=== PATIENT | female | born 1950 | race Caucasian/White ===

== ENCOUNTER → 2017-10-27 | Outpatient (CLI) | payer MEDICARE, OTHER ==
[~2017-10-27] MED LIST: CONEST.625 PO; Carvedilol6.25 MG PO; LEVSOD100 PO; MONT10T PO; ZYRTEC10 MG PO
[2017-10-27 11:18] LABS: Albumin, Blood 4.3 g/dL (3.4-5.0); Anion Gap 8 mmol/L (6-16); Blood Urea Nitrogen 8 mg/dL (8-24); Bun/Creatinine Ratio 9.8 (12.0-20.0); CO2, Blood 27 mmol/L (21-32); Chloride, Blood 101 mmol/L (98-108); Creatinine, Blood 0.81 mg/dL (0.40-1.00); Glomerular Filtration Rate >60 (60-); Glucose, Blood 107 mg/dL (70-99); Magnesium, Blood 2.1 mg/dL (1.6-2.4); Phosphorus, Blood 3.7 mg/dL (2.5-4.9); Potassium, Blood 4.2 mmol/L (3.5-5.5); Sodium, Blood 136 mmol/L (136-145)
[2017-10-27 17:33] LABS: Protein, Urine Random 115.1 mg/dL (0.0-11.9)
== END ==
LOC: OLS 09:51
PROVIDERS: Internal Medicine
DX: E55.9 Vitamin D deficiency, unspecified (principal); I10 Essential (primary) hypertension
CPT/HCPCS: 36415; 80069; 82306; 82570; 83735; 84156

== ENCOUNTER → 2018-03-08 | Outpatient (CLI) | payer MEDICARE, OTHER | END | disposition home or self-care (01) | LOC: LAB 09:32 → LAB SHORT 09:32 | DX: A49.9 Bacterial infection, unspecified (principal) | CPT/HCPCS: 87070 ==

== ENCOUNTER 2024-03-11 19:10 | Observation (INO) | payer MEDICARE, OTHER ==
[~2024-03-11] VITALS: Ht 165.1 cm; Wt 70.1 kg
[~2024-03-11 19:10] MED LIST changes: -LEVSOD100 PO; +LEVSOD75 PO; +Prednisone20 MG PO
[2024-03-11 19:30] LABS: BASOPHILS ABSOLUTE AUTO 0.07 K/mm3 (0.00-0.23); BASOPHILS PERCENT AUTO 1 % (0-2); EOSINOPHILS PERCENT AUTO 0 % (0-6); Hematocrit 42.3 % (33.0-51.0); Hemoglobin 14.1 g/dL (11.5-16.0); IMMATURE GRAN ABSOLUTE AUTO 0.07 K/mm3 (0.00-0.10); IMMATURE GRAN PERCENT AUTO 1 % (0-1); LYMPHOCYTES ABSOLUTE AUTO 1.71 K/mm3 (0.84-5.20); LYMPHOCYTES PERCENT AUTO 23 % (21-46); MONOCYTES ABSOLUTE AUTO 0.53 K/mm3 (0.16-1.47); MONOCYTES PERCENT AUTO 7 % (4-13); Mean Corpuscular HGB 31.3 pg (26.0-34.0); Mean Corpuscular HGB Conc 33.3 g/dL (31.5-36.5); Mean Corpuscular Volume 94 fL (80-100); Mean Platelet Volume 10.2 fL (9.1-12.4); NEUTROPHILS ABSOLUTE AUTO 5.09 K/mm3 (1.96-9.15); NEUTROPHILS PERCENT AUTO 68 % (41-73); Platelet Count 255 K/mm3 (150-400); RDW Coefficient Variation 13.3 % (11.7-14.2); White Blood Cell Count 7.47 K/mm3 (4.00-11.30)
[2024-03-11] MEDS ORDERED: GABA100 PO (19:34)
[2024-03-11 20:00] LABS: Albumin, Blood 3.9 g/dL (3.4-5.0); Albumin/Globulin Ratio 1.3 (0.8-1.8); Bilirubin, Total 0.5 mg/dL (0.1-1.0); Bun/Creatinine Ratio 10.7 (12.0-20.0); Creatinine, Blood 0.93 mg/dL (0.40-1.00); Globulin, Blood 2.9 g/dL (2.2-4.0); Potassium, Blood 4.8 mmol/L (3.5-5.5); Total Protein, Blood 6.8 g/dL (6.4-8.2)
[2024-03-11] MEDS ORDERED: Aspirin 81 MG Chew PO ONE (20:35)
[2024-03-11] MEDS ORDERED: Nitroglycerin 0.4 MG SUBL SL PRN ×3 (20:40→22:25)
[2024-03-11] MEDS ORDERED: LORazepam 2 MG/ML 1ML Injection IV ONE (20:50)
[2024-03-11] MEDS ORDERED: NS 1,000 ML IV ONE (20:59)
[2024-03-11] MEDS ORDERED: NS 1,000 ML IV SCH ×2 (21:00→22:20)
[2024-03-11] MEDS ORDERED: Ondansetron HCl 2 MG / ML 2ML Vial IV PRN (22:20)
[2024-03-11] MEDS ORDERED: FentaNYL Citrate 50 MCG/ML 2 ML Injection IV PRN (22:25)
[2024-03-11] MEDS ORDERED: Heparin Sodium 5000 Units/ML 1ML MDV IV ONE (22:55)
[2024-03-11] MEDS ORDERED: Heparin Sodium,Porcine/0.5 NS 500 ML IV SCH (22:55)
[2024-03-11] MEDS ORDERED: Atorvastatin 40 MG Tab PO SCH (23:00)
[2024-03-11] MEDS ORDERED: Clopidogrel Bisulfate 300 MG Cap PO ONE (23:00)
[2024-03-11 23:11] LABS: Anti-Xa UFH, PHA Monitoring <0.10 IU/mL; International Normalized Ratio 0.97; Prothrombin Time Results 10.4 Sec (9.7-11.5)
[2024-03-11] MEDS ORDERED: AmLODIPine Besylate 5 MG Tab PO ONE (23:25)
[2024-03-12] VITALS (13 sets, daily range): BP systolic 132–162; BP diastolic 70–94
[2024-03-12] MEDS ORDERED: EUTHYROX50 MCG PO (00:26)
[2024-03-12] MEDS ORDERED: LOSA25 PO (00:28)
[2024-03-12] MEDS ORDERED: AMLO5 PO (00:28)
--- NOTE | 2024-03-12 02:00 | NUR ---
ARRIVAL TO PCU: PT ARRIVED TO PCU-11 VIA GURNEY AT 0010. REPORT TAKEN FROM MADELINE RN, THIS RN ASSUMED CARE. PT ABLE TO STAND AND TRANSFER TO BED W/ SBA FOR LINE MANAGEMENT. A/OX4, ABLE TO COMMUNICATE NEEDS. VSS ON ARRIVAL. HR 60'S, SINUS ON TELE. SBP 150'S, PT DENIES CHEST PAIN/PRESSURE. REPORTS FEELINGS OF "ACID REFLUX" BUT REPORTS THAT INITIAL CHEST PAIN HAS RESOLVED. SPO2 >95% ON RA, RESPIRATIONS EVEN & UNLABORED. AFEBRILE. HEPARIN GTT STARTED IN ED, INFUSING AT 15 U/KG/HR PER EMAR. NS INITIATED AT 75 ML/HR PER ORDERS. SKIN INTACT. ABLE TO AMBULATE TO BATHROOM TO VOID W/ SBA. PT ORIENTED TO ROOM/UNIT/CALL LIGHT. FIRE SAFETY/IGNITION RISK ASSESSED; PT IS A NON-SMOKER & DOES NOT HAVE ANY IGNITION SOURCES PRESENT ON ADMISSION. NO OTHER NEEDS AT THIS TIME. PT IS RESTING IN BED WITH CALL LIGHT IN REACH.
--- NOTE | 2024-03-12 05:35 | NUR ---
END OF SHIFT NOTE: NO ACUTE EVENTS FOLLOWING ARRIVAL TO PCU. VSS. PT REPORTS "HEARTBURN PAIN" AT -11/13. DENIES CHEST PAIN SIMILAR TO THE PAIN THAT WAS EXPERIENCED AT HOME/IN ED. HEPARIN GTT INFUSING PER EMAR. REPOSITIONING SELF INDEPENDENTLY T/O NOC. PT HAS BEEN NPO SINCE 0000 FOR CARDIOLOGY CONSULT THIS AM. NO OTHER NEEDS AT THIS TIME. CALL LIGHT IN REACH, WILL REPORT TO ONCOMING RN.
[2024-03-12] MEDS ORDERED: Levothyroxine Sodium 0.075 MG Tab PO SCH (06:00)
[2024-03-12 06:10] LABS: BASOPHILS ABSOLUTE AUTO 0.06 K/mm3 (0.00-0.23); BASOPHILS PERCENT AUTO 1 % (0-2); EOSINOPHILS PERCENT AUTO 0 % (0-6); Hematocrit 40.9 % (33.0-51.0); IMMATURE GRAN PERCENT AUTO 1 % (0-1); LYMPHOCYTES ABSOLUTE AUTO 1.22 K/mm3 (0.84-5.20); LYMPHOCYTES PERCENT AUTO 11 % (21-46); MONOCYTES PERCENT AUTO 7 % (4-13); Mean Corpuscular HGB 31.6 pg (26.0-34.0); Mean Corpuscular HGB Conc 34.2 g/dL (31.5-36.5); Mean Corpuscular Volume 92 fL (80-100); Mean Platelet Volume 10.3 fL (9.1-12.4); NEUTROPHILS ABSOLUTE AUTO 8.92 K/mm3 (1.96-9.15); NEUTROPHILS PERCENT AUTO 80 % (41-73); Platelet Count 226 K/mm3 (150-400); RDW Coefficient Variation 13.3 % (11.7-14.2); RDW Standard Deviation 45.5 fL (35.1-46.3); Red Blood Cell Count 4.43 M/mm3 (3.80-5.20)
[2024-03-12] MEDS ORDERED: Levothyroxine Sodium 0.05 MG Tab PO SCH (06:11)
[2024-03-12 06:44] LABS: Albumin, Blood 3.9 g/dL (3.4-5.0); Albumin/Globulin Ratio 1.3 (0.8-1.8); Bilirubin, Total 0.5 mg/dL (0.1-1.0); Bun/Creatinine Ratio 12.7 (12.0-20.0); Creatinine, Blood 0.71 mg/dL (0.40-1.00); Globulin, Blood 2.9 g/dL (2.2-4.0); Potassium, Blood 3.9 mmol/L (3.5-5.5); Total Protein, Blood 6.8 g/dL (6.4-8.2)
[2024-03-12] MEDS ORDERED: Dose Adjust by Pharmacy XX STA (06:51)
[2024-03-12] MEDS ORDERED: Hydrocortisone Sod Succinate 100 MG Vial IV ONE (08:35)
[2024-03-12] MEDS ORDERED: Famotidine 10 MG/ML 2ML Vial IV ONE (08:35)
[2024-03-12] MEDS ORDERED: Clopidogrel Bisulfate 75 MG Tab PO SCH (09:00)
[2024-03-12] MEDS ORDERED: Aspirin 81 MG Chew PO SCH (09:00)
[2024-03-12] MEDS ORDERED: Losartan Potassium 25 MG Tab PO SCH (09:00)
[2024-03-12] MEDS ORDERED: Gabapentin 100 MG Cap PO SCH (09:00)
[2024-03-12] MEDS ORDERED: Loratadine 10 MG Tab PO SCH (09:00)
[2024-03-12] MEDS ORDERED: Losartan Potassium 25 MG Tab PO ONE (10:20)
[2024-03-12] MEDS ORDERED: Heparin Sodium 1000 Units/ML 10ML MDV ONE (10:43)
[2024-03-12] MEDS ORDERED: Verapamil HCL 2.5 MG/ML 2ML Injection ONE ×2 (10:43→10:57)
[2024-03-12] MEDS ORDERED: Nitroglycerin 2 MG/20 ML BTL ONE (10:44)
[2024-03-12] MEDS ORDERED: NS 1,000 ML IV ONE ×2 (10:44→10:52)
[2024-03-12] MEDS ORDERED: NS 250 ML IV ONE (10:44)
[2024-03-12] MEDS ORDERED: DiphenhydrAMINE HCl 50 MG/ML 1ML Vial ONE (10:52)
[2024-03-12] MEDS ORDERED: Midazolam HCl 1MG / ML 2ML Vial ONE (10:52)
[2024-03-12] MEDS ORDERED: FentaNYL Citrate 50 MCG/ML 2 ML Injection ONE (10:52)
[2024-03-12] MEDS ORDERED: Tirofiban HCL Monohydrate 3.75 MG/15 ML Vial ONE (11:37)
[2024-03-12] MEDS ORDERED: Clopidogrel Bisulfate 75 MG Tab ONE (12:06)
[2024-03-12] MEDS ORDERED: Clopidogrel Bisulfate 300 MG Cap ONE (12:06)
--- NOTE | 2024-03-12 18:06 | NUR ---
SHIFT SUMMARY PATIENT ALERT AND ORIENTED x4. PATIENT UNDERWENT ANGIO THIS SHIFT. RIGHT RADIAL SITE FULLY RECOVERED AT 1805. OPSITE IN PLACE, C/D/I. NO PAIN AT SITE, MINIMAL BRUISING, CAP REFILL <3 SECONDS. BP STABLE. TELE READING SR 60s. PATIENT ON RA WITH SPO2 >90%. DENIED CHEST PAIN OR CARDIAC SYMPTOMS THIS SHIFT. TOLERATING PO AFTER PROCEDURE. PATIENT AMBULATING IN ROOM WITH MINIMAL ASSIST. NO OTHER SIGNIFICANT CHANGES THIS SHIFT, WILL REPORT TO PATIENT CARE TECHNICIAN INSTRUCTOR RN.
[2024-03-12] MEDS ORDERED: AmLODIPine Besylate 5 MG Tab PO SCH (21:00)
[2024-03-12] MEDS ORDERED: Montelukast Sodium 10 MG Tab PO SCH (21:00)
--- NOTE | 2024-03-12 21:59 | NUR ---
ASSUMPTION OF CARE: THIS RN ASSUMED CARE OF PT AT APPROX 1900, BEDSIDE REPORT COMPLETED. PT ALERT, ORIENTED X4. ABLE TO COMMUNICATE NEEDS. VSS. HR 60'S, SINUS ON TELE. SBP 130'S, DENIES CHEST PAIN/PRESSURE. SPO2 >95% ON RA, RESPIRATIONS EVEN & UNLABORED. R RADIAL ANGIO SITE REMAINS C/D/I. NO BLEEDING OR HEMATOMA FORMATION PRESENT. ARMBOARD IN PLACE. PT DENIES PAIN AT THIS TIME. REPOSITIONING INDEPENDENTLY IN BED, CALLS APPROPRIATELY FOR ASSISTANCE NEEDED. NO OTHER NEEDS AT THIS TIME. CALL LIGHT IN REACH.
[2024-03-13 03:37] VITALS: BP 121/73
[2024-03-13 03:51] LABS: BASOPHILS ABSOLUTE AUTO 0.03 K/mm3 (0.00-0.23); BASOPHILS PERCENT AUTO 0 % (0-2); EOSINOPHILS PERCENT AUTO 0 % (0-6); Hematocrit 38.5 % (33.0-51.0); Hemoglobin 13.2 g/dL (11.5-16.0); IMMATURE GRAN ABSOLUTE AUTO 0.06 K/mm3 (0.00-0.10); IMMATURE GRAN PERCENT AUTO 1 % (0-1); LYMPHOCYTES ABSOLUTE AUTO 1.38 K/mm3 (0.84-5.20); LYMPHOCYTES PERCENT AUTO 13 % (21-46); MONOCYTES PERCENT AUTO 9 % (4-13); Mean Corpuscular HGB 31.5 pg (26.0-34.0); Mean Corpuscular HGB Conc 34.3 g/dL (31.5-36.5); Mean Corpuscular Volume 92 fL (80-100); Mean Platelet Volume 10.1 fL (9.1-12.4); NEUTROPHILS ABSOLUTE AUTO 8.24 K/mm3 (1.96-9.15); NEUTROPHILS PERCENT AUTO 77 % (41-73); Platelet Count 213 K/mm3 (150-400); RDW Coefficient Variation 13.5 % (11.7-14.2); RDW Standard Deviation 45.6 fL (35.1-46.3); Red Blood Cell Count 4.19 M/mm3 (3.80-5.20); White Blood Cell Count 10.71 K/mm3 (4.00-11.30)
--- NOTE | 2024-03-13 04:16 | NUR ---
END OF SHIFT NOTE: NO ACUTE EVENTS OVERNIGHT. VSS. R RADIAL SITE REMAINS INTACT W/O BLEEDING OR HEMATOMA FORMATION. ARMBOARD REMAINS IN PLACE. PT DENIES CHEST PAIN/PRESSURE. ABLE TO SLEEP FOR MAJORITY OF THE NIGHT & AMBULATE TO RESTROOM INDEPENDENTLY. NO OTHER NEEDS AT THIS TIME, CALL LIGHT IN REACH. WILL REPORT TO ONCOMING RN.
[2024-03-13 04:17] LABS: Bun/Creatinine Ratio 11.9 (12.0-20.0); Calcium, Blood 8.9 mg/dL (8.5-10.1); Creatinine, Blood 0.67 mg/dL (0.40-1.00); Potassium, Blood 3.6 mmol/L (3.5-5.5)
[2024-03-13] MEDS ORDERED: Levothyroxine Sodium 0.075 MG Tab PO SCH (06:00)
[2024-03-13 07:28] VITALS: BP 131/95
[2024-03-13] MEDS ORDERED: Losartan Potassium 25 MG Tab PO SCH (09:00)
[2024-03-13 11:12] VITALS: BP 111/66
[2024-03-13] MEDS ORDERED: ASPI81CH PO (12:07)
[2024-03-13] MEDS ORDERED: LIPITOR80 MG PO (12:07)
[2024-03-13] MEDS ORDERED: PANT40 PO (12:08)
[2024-03-13] MEDS ORDERED: NITR.4SL SL (12:08)
[2024-03-13] MEDS ORDERED: CLOP75 PO (12:08)
--- NOTE | 2024-03-13 12:36 | NUR ---
D/C SUMMARY VITAL SIGNS REMAIN STABLE T/O THE MORNING. PT IS A&oX4, IND IN THE ROOM, AND HER HAS BEEN AT BEDSIDE. HER RIGHT RADIAL SITE REMAINS W/O ANY REDNESS, SWELLING, SIGNS OF INFECTION, AND THE DRESSING IS C/D/I. THE PT WANTED TO KEEP HER ARM BOARD ON TO REMIND HER OF HER WEIGHT LIMITS. BOTH OF HER IV'S WERE DISCHARGED BEFORE LEAVING. I WENT OVER ALL DISCHARGE MEDICATIONS WITH THE PT AND ANSWERED ALL OF HER QUESTIONS. PT LEFT AT ABOUT 1235. NO FURTHER UPDATES.
[2024-03-18] MEDS ORDERED: Levothyroxine Sodium 0.05 MG Tab PO SCH (06:00)
== END 2024-03-13 12:41 | disposition home or self-care (01) ==
LOC: ER 19:10 → PCU 19:11 → ER 21:20 → PCU 21:20
PROVIDERS: Family Medicine; Nurse Practitioner Acute Care; Physician Assistant; ADMIT Internal Medicine
DX: I21.4 Non-ST elevation (NSTEMI) myocardial infarction (principal); E03.9 Hypothyroidism, unspecified; I10 Essential (primary) hypertension; Z72.0 Tobacco use; Z88.8 Allergy status to other drugs, medicaments and biological substances; Z79.899 Other long term (current) drug therapy
CPT/HCPCS: 36415; 71046; 76937; 80048; 80053; 84484; 85025; 85347; 85520; 85610; 93005; 93010; 93306; 93454; 96361; 96374; 96375; 99152; 99153; 99285-25; A9270; C1725; C1769; C1874; C1887; C1894; C9600; G0378; J1200; J1644; J1720; J2060; J2250; J3010; J3246; J7030; J7050; Q9967

== ENCOUNTER 2024-11-09 15:47 | Emergency (ER) | payer MEDICARE, OTHER ==
[~2024-11-09] VITALS: Ht 165.1 cm; Wt 71.7 kg
[~2024-11-09 15:47] MED LIST changes: +AMLO5 PO; +ASPI81CH PO; +CLOP75 PO; +EUTHYROX50 MCG PO; +GABA100 PO; +LIPITOR80 MG PO; +LOSA25 PO; +NITR.4SL SL; +PANT40 PO
[2024-11-09 16:37] LABS: BASOPHILS ABSOLUTE AUTO 0.03 K/mm3 (0.00-0.23); BASOPHILS PERCENT AUTO 1 % (0-2); EOSINOPHILS PERCENT AUTO 0 % (0-6); Hemoglobin 13.9 g/dL (11.5-16.0); IMMATURE GRAN ABSOLUTE AUTO 0.02 K/mm3 (0.00-0.10); IMMATURE GRAN PERCENT AUTO 0 % (0-1); LYMPHOCYTES ABSOLUTE AUTO 1.25 K/mm3 (0.84-5.20); LYMPHOCYTES PERCENT AUTO 22 % (21-46); MONOCYTES ABSOLUTE AUTO 0.53 K/mm3 (0.16-1.47); MONOCYTES PERCENT AUTO 9 % (4-13); Mean Corpuscular HGB 31.9 pg (26.0-34.0); Mean Corpuscular HGB Conc 33.9 g/dL (31.5-36.5); Mean Corpuscular Volume 94 fL (80-100); Mean Platelet Volume 10.2 fL (9.1-12.4); NEUTROPHILS ABSOLUTE AUTO 3.85 K/mm3 (1.96-9.15); NEUTROPHILS PERCENT AUTO 68 % (41-73); Platelet Count 187 K/mm3 (150-400); RDW Coefficient Variation 14.3 % (11.7-14.2); RDW Standard Deviation 49.3 fL (35.1-46.3); Red Blood Cell Count 4.36 M/mm3 (3.80-5.20); White Blood Cell Count 5.68 K/mm3 (4.00-11.30)
[2024-11-09 16:53] LABS: Albumin, Blood 4.1 g/dL (3.4-5.0); Albumin/Globulin Ratio 1.4 (0.8-1.8); Bilirubin, Total 0.7 mg/dL (0.1-1.0); Bun/Creatinine Ratio 10.5 (12.0-20.0); Calcium, Blood 9.1 mg/dL (8.5-10.1); Creatinine, Blood 0.86 mg/dL (0.40-1.00); Potassium, Blood 4.1 mmol/L (3.5-5.5); Total Protein, Blood 7.1 g/dL (6.4-8.2)
[2024-11-09 19:30] VITALS: BP 177/76
== END 2024-11-09 19:53 | disposition home or self-care (01) ==
LOC: ER 15:47
PROVIDERS: Student in an Organized Health Care Education/Training Program
DX: I10 Essential (primary) hypertension (principal); E03.9 Hypothyroidism, unspecified; Z91.041 Radiographic dye allergy status; Z79.51 Long term (current) use of inhaled steroids; Z88.9 Allergy status to unspecified drugs, medicaments and biological substances; Z79.890 Hormone replacement therapy; Z79.891 Long term (current) use of opiate analgesic; Z79.899 Other long term (current) drug therapy; Z79.82 Long term (current) use of aspirin; Z79.02 Long term (current) use of antithrombotics/antiplatelets; Z79.1 Long term (current) use of non-steroidal anti-inflammatories (NSAID)
CPT/HCPCS: 71046; 80053; 84484; 85025; 93005; 93010; 99283-25

== ENCOUNTER 2025-06-13 04:56 | Emergency (ER) | payer MEDICARE, OTHER ==
[~2025-06-13] VITALS: Ht 165.1 cm; Wt 70.3 kg
[2025-06-13 05:28] LABS: BASOPHILS ABSOLUTE AUTO 0.05 K/mm3 (0.00-0.23); BASOPHILS PERCENT AUTO 1 % (0-2); EOSINOPHILS ABSOLUTE AUTO 0.00 K/mm3 (0.00-0.68); EOSINOPHILS PERCENT AUTO 0 % (0-6); Hematocrit 42.0 % (33.0-51.0); Hemoglobin 14.3 g/dL (11.5-16.0); IMMATURE GRAN ABSOLUTE AUTO 0.03 K/mm3 (0.00-0.10); IMMATURE GRAN PERCENT AUTO 1 % (0-1); LYMPHOCYTES ABSOLUTE AUTO 1.01 K/mm3 (0.84-5.20); LYMPHOCYTES PERCENT AUTO 18 % (21-46); MONOCYTES ABSOLUTE AUTO 0.63 K/mm3 (0.16-1.47); MONOCYTES PERCENT AUTO 11 % (4-13); Mean Corpuscular HGB Conc 34.0 g/dL (31.5-36.5); Mean Corpuscular Volume 91 fL (80-100); NEUTROPHILS ABSOLUTE AUTO 3.86 K/mm3 (1.96-9.15); NEUTROPHILS PERCENT AUTO 69 % (41-73); NRBC ABSOLUTE 0.00 K/mm3 (0.00-0.02); NRBC Auto 0.0 /100 WBC (0.0-0.2); Platelet Count 225 K/mm3 (150-400); RDW Coefficient Variation 14.2 % (11.7-14.2); RDW Standard Deviation 47.7 fL (35.1-46.3)
[2025-06-13 05:52] LABS: Alanine Aminotransfer (ALT/SGP 30.0 U/L (12-78); Albumin, Blood 4.1 g/dL (3.4-5.0); Albumin/Globulin Ratio 1.6 (0.8-1.8); Anion Gap 10.0 mmol/L (3-11); Aspartate Aminotrans (AST/SGOT 21.0 U/L (12-37); Bilirubin, Total 0.5 mg/dL (0.1-1.0); Blood Urea Nitrogen 8.0 mg/dL (8-24); CO2, Blood 26.0 mmol/L (21-32); Calcium, Blood 9.0 mg/dL (8.5-10.1); Chloride, Blood 103.0 mmol/L (98-108); Creatinine, Blood 0.73 mg/dL (0.40-1.00); Globulin, Blood 2.6 g/dL (2.2-4.0); Glucose, Blood 108.0 mg/dL (70-99); Potassium, Blood 3.9 mmol/L (3.5-5.5); Sodium, Blood 135.0 mmol/L (136-145); Total Protein, Blood 6.7 g/dL (6.4-8.2)
[2025-06-13] MEDS ORDERED: ROSUVASTATIN CA10 MG PO (06:09)
[2025-06-13] MEDS ORDERED: METOPROLOL SUCC25 MG PO (06:09)
[2025-06-13 06:42] LABS: Influenza A, PCR NEGATIVE (NEGATIVE); Influenza B, PCR NEGATIVE (NEGATIVE); Resp Syncytial Virus, PCR NEGATIVE (NEGATIVE); SARS-Cov-2 (COVID-19) PCR, MMC NEGATIVE (NEGATIVE)
[2025-06-13] MEDS ORDERED: Ondansetron HCl 2 MG / ML 2ML Vial IV ONE (07:20)
[2025-06-13] MEDS ORDERED: NS 500 ML IV SCH (08:40)
[2025-06-13] MEDS ORDERED: DiphenhydrAMINE HCl 50 MG/ML 1ML Vial IV ONE (09:30)
[2025-06-13] MEDS ORDERED: Metoclopramide HCl 5MG / ML 2ML Vial IV ONE (09:30)
--- NOTE | 2025-06-13 10:00 | NUR ---
Pt. is awake in the ED and welcomes my visit. Pt.is known to this Pt. from the community. Facilitated a life review and prayed with the Pt.
[2025-06-13] MEDS ORDERED: ONDA4ODT MM (14:25)
[2025-06-13] MEDS ORDERED: MECL25 PO (14:25)
[2025-06-13 14:33] VITALS: BP 155/87
== END 2025-06-13 14:40 | disposition home or self-care (01) ==
LOC: ER 04:56
PROVIDERS: Student in an Organized Health Care Education/Training Program
DX: H81.10 Benign paroxysmal vertigo, unspecified ear (principal); Z86.73 Personal history of transient ischemic attack (TIA), and cerebral infarction without residual deficits; E03.9 Hypothyroidism, unspecified; I10 Essential (primary) hypertension; E78.5 Hyperlipidemia, unspecified; Z79.82 Long term (current) use of aspirin; Z79.02 Long term (current) use of antithrombotics/antiplatelets; Z79.899 Other long term (current) drug therapy; Z91.041 Radiographic dye allergy status
CPT/HCPCS: 70551; 80053; 85025; 87637; 93005; 93010; 96374; 96375; 99284-25; A9270; J1200; J2405; J2765; J7030